=== PATIENT | female | born 1990 | race Caucasian/White ===

== ENCOUNTER 2017-04-16 22:39 | Emergency (ER) | payer OTHER ==
[2017-04-16] MEDS ORDERED: Bupivacaine 0.5% 30 ML SDV INFILT ONE (22:40)
[2017-04-16] MEDS ORDERED: Diphtheria,Pertussis(Acell),Tetanus Vaccine 0.5 ML SDV IM ONE (22:45)
--- NOTE | 2017-04-16 22:45 | EDM.PDOC ---
ED HPI GENERAL MEDICAL PROBLEM - General Stated Complaint: RT LEG LAC Time Seen by Provider: 04/16/17 22:39 Source of Information: Reports: Patient, Other (boss) History Limitations: Reports: No Limitations - History of Present Illness INITIAL COMMENTS - FREE TEXT/NARRATIVE: 27 y.o.w.bowen came to the ed after she injured her self at work while carrying out the trash. She haa a LAC at her r lower leg. No loss of function. No N/V/D or dizziness or any other acute medical issues. BP 134/78 pulse 67 RR 18 Pulse ox 100% Temp 36.9 Onset Date: 04/16/17 Onset Time: 22:00 Duration: Minutes:, Constant Location: Reports: Lower Extremity, Right Quality: Reports: Ache Severity: Mild Improves with: Reports: Rest Worsens with: Reports: Movement Context: Reports: Trauma (at work while carriing out the trash) Associated Symptoms: Reports: No Other Symptoms Leg Pain Score (Numeric/FACES): 6 - Related Data Allergies Allergy/AdvReac Type Severity Reaction Status Date / Time No Known Allergies Allergy Verified 04/16/17 23:22 Home Meds: Home Meds Cephalexin [Keflex] 500 mg PO Q8H #30 cap 04/16/17 [Rx] Review of Systems - Review of Systems Review Of Systems: See Below Constitutional: Reports: No Symptoms Eyes: Reports: No Symptoms Ears: Reports: No Symptoms Nose: Reports: No Symptoms Mouth/Throat: Reports: No Symptoms Respiratory: Reports: No Symptoms Cardiovascular: Reports: No Symptoms GI/Abdominal: Reports: No Symptoms Genitourinary: Reports: No Symptoms Musculoskeletal: Reports: No Symptoms Skin: Reports: Wound (right lower leg) Neurological: Reports: No Symptoms Psychiatric: Reports: No Symptoms ED EXAM, GENERAL - Physical Exam Exam: See Below Exam Limited By: No Limitations General Appearance: Alert, WD/WN, Mild Distress Eye Exam: Bilateral Eye: Normal Inspection Ears: Normal External Exam Ear Exam: Bilateral Ear: Auricle Normal Nose: Normal Inspection, Normal Mucosa, No Blood Throat/Mouth: Normal Inspection, Normal Lips, Normal Teeth Head: Atraumatic, Normocephalic Neck: Normal Inspection, Supple, Non-Tender, Full Range of Motion Respiratory/Chest: No Respiratory Distress, Lungs Clear, Normal Breath Sounds, No Accessory Muscle Use, Chest Non-Tender Cardiovascular: Normal Peripheral Pulses, Regular Rate, Rhythm Peripheral Pulses: 1+: Radial (L) GI/Abdominal: Normal Bowel Sounds, Soft, Non-Tender, No Organomegaly, No Distention, No Abnormal Bruit, No Mass, Pelvis Stable (Female) Exam: Deferred Rectal (Female) Exam: Deferred Back Exam: Normal Inspection Extremities: Other (laceration6 cm) Neurological: Alert, Oriented, CN II-XII Intact, Normal Cognition Psychiatric: Normal Affect, Normal Mood Skin Exam: Warm, Dry, Intact, Normal Color, No Rash Lymphatic: No Adenopathy ED TRAUMA EXTREMITY PROCEDURES - Laceration/Wound Repair Right Lower Leg Lac/Wound Length In cm: 6 (right lower leg) Appearance: Superficial, Linear Distal NVT: Neuro & Vascular Intact, No Tendon Injury Anesthetic Type: Digital Local Anesthesia - Bupivicaine (Marcaine): 0.5% Plain Local Anesthetic Volume: 3cc Skin Prep: Chlorhexidine (Hibiciens), Providone-Iodine (Betadine) Exploration/Debridement/Repair: Wound Explored, In a Bloodless Field, Explored to Base Suture Size: 4-0 # of Sutures: 8 Tetanus Status Addressed: Other (today) Complications: No Course - Vital Signs Text/Narrative:: 27 y.o.w.f came to the ed after she injured her self at work while carrying out the trash. She haa a LAC at her r lower leg. No loss of function. No N/V/D or dizziness or any other acute medical issues. BP 134/78 pulse 67 RR 18 Pulse ox 100% Temp 36.9 PE: LAC right lower leg, linear, no active bleed, no FB Procedure note: Please see above Labs: No drug test was required Impression: LAC right lower leg Tx: wound repaie, TD, Abx Reexam: Improved Plan: D/C with instructions Last Recorded V/S: Last Vital Signs Temp 36.6 C 04/16/17 22:43 Pulse 100 04/16/17 22:43 Resp 16 04/16/17 22:43 BP 138/87 04/16/17 22:43 Pulse Ox 98 04/16/17 22:43 - Orders/Labs/Meds Orders: Active Orders 24 hr Category Date Time Status Vaccines to be Administered [RC] PER UNIT ROUTINE Care 04/16/17 22:45 Active Meds: Medications Discontinued Medications Generic Name Dose Route Start Last Admin Trade Name Fidel PRN Reason Stop Dose Admin Cephalexin 500 mg 04/16/17 23:09 04/16/17 23:32 Keflex PO 04/16/17 23:10 500 mg ONETIME ONE Administration Diphtheria/Tetanus/Acell Pertussis 0.5 ml 04/16/17 22:45 04/16/17 23:30 Adacel IM 04/16/17 22:46 0.5 ml .ONCE ONE Administration Departure - Departure Time of Disposition: 23:21 Disposition: Home, Self-Care 01 Condition: Good Clinical Impression: Laceration - Discharge Information Prescriptions: Cephalexin [Keflex] 500 mg PO Q8H #30 cap Instructions: Laceration Care, Adult, [id number] Referrals: PCP,None [Primary Care Provider] - Forms: ED Department Discharge Additional Instructions: Please take keflex as recommended, please apply neosporine to wound twice daily for 5 days, wound check in 2 days, suture removal in 10 days. Please come back to the ed if symptoms get worse acutely - My Orders Last 24 Hours: My Active Orders 04/16/17 22:45 Vaccines to be Administered [RC] PER UNIT ROUTINE - Assessment/Plan Last 24 Hours: My Active Orders 04/16/17 22:45 Vaccines to be Administered [RC] PER UNIT ROUTINE
[2017-04-16] MEDS ORDERED: Cephalexin 500 MG Cap PO ONE (23:09)
== END 2017-04-16 23:30 | disposition home or self-care (01) ==
LOC: FB.ED 22:39
DX: S81.811A Laceration without foreign body, right lower leg, initial encounter (principal); Z23 Encounter for immunization; X58.XXXA Exposure to other specified factors, initial encounter; Y99.0 Civilian activity done for income or pay
CPT/HCPCS: 12002; 90715; 99282; A9270-GY